=== PATIENT | male | born 1970 | race Two or more races ===

== ENCOUNTER 2018-11-10 17:54 | Emergency (ER) | payer OTHER, MEDICAID ==
[~2018-11-10] VITALS: Ht 172.7 cm; Wt 69.5 kg
--- NOTE | 2018-11-10 18:16 | NUR ---
BREAK RN: PT RESTING COMFORTABLY IN [facility] WILL FALL PRECAUTIONS IN PLACE. [facility]
--- NOTE | 2018-11-10 18:20 | NUR ---
BREAK RN: XRAY AT BEDSIDE.
[2018-11-10] MEDS ORDERED: HYDROmorphone 2 MG/ML, 1ML IVPush PRN (18:30)
[2018-11-10] MEDS ORDERED: SODIUM CHLORIDE FLUSH 10ML SYR IVF ONE (18:30)
[2018-11-10] MEDS ORDERED: DIAZEPAM 5 MG/ML, 10ML VIAL IV ONE (18:30)
[2018-11-10] MEDS ORDERED: PLEASE ENTER ALLERGIES MC SCH (18:30)
[2018-11-10] MEDS ORDERED: HYDROmorphone 2 MG/ML, 1ML ONE (18:52)
[2018-11-10] MEDS ORDERED: DIAZEPAM 5 MG/ML, 2ML ONE ×2 (18:53→19:10)
--- NOTE | 2018-11-10 19:22 | NUR ---
IV ESTABLISHED AND PT MEDICATED PER MD ELDON TO PERFORM BEDSIDE HERNIA REDUCTION
[2018-11-10 20:23] VITALS: BP 106/80
== END 2018-11-10 20:52 | disposition home or self-care (01) ==
LOC: ED 19:21
DX: K40.91 Unilateral inguinal hernia, without obstruction or gangrene, recurrent (principal); F17.200 Nicotine dependence, unspecified, uncomplicated
CPT/HCPCS: 71045; 96374; 96375; 99283; J1170; J3360